=== PATIENT | female | born 1995 | race Caucasian/White ===

== ENCOUNTER 2017-05-10 16:56 | Emergency (ER) | payer SELFPAY ==
[2017-05-10 17:16] VITALS: BP 146/48
--- NOTE | 2017-05-10 17:38 | UC ---
Abdominal Pain Female HPI - HPI Summary HPI Summary: ONSET OF LOWER ABDOMINAL PAIN AND NAUSEA TODAY AT 3:30PM. NO FEVER OR DIARRHEA. LAST BM THIS MORNING WAS NORMAL. DENIES ANY CHANCE OF . NO URINARY SX. PT REPORTS PAIN IMPROVED AFTER ABOUT 45 MINUTES AND IS NOW COMPLETELY RESOLVED AND SHE DECLINES ALL WORK-UP HERE. 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 - BOYFRIEND Hx Last Menstrual Period: 04/24/17 Onset/Duration: Sudden Onset, Lasting Minutes, Resolved Severity Initially: Moderate Severity Currently: None Pain Intensity: 7 Pain Scale Used: 0-10 Numeric Location: Suprapubic Radiates: No Character: Sharp Aggravating Factor(s): Nothing Alleviating Factor(s): Spontaneous Resolution Associated Signs and Symptoms: Negative: Fever, Back Pain, Constipation, Blood in Stool, Urinary Symptoms, Decreased Appetite, Vaginal Bleeding, Vaginal Discharge, Nausea, Vomiting, Diarrhea Allergies/Adverse Reactions: Allergies Allergy/AdvReac Type Severity Reaction Status Date / Time No Known Allergies Allergy Verified 05/10/17 17:16 PMH/Surg Hx/FS Hx/Imm Hx Previously Healthy: Yes - Surgical History Surgical History: Yes Surgery Procedure, Year, and Place: tonsills and adnoids - Family History Known Family History: Positive: Hypertension - Social History Alcohol Use: None Substance Use Type: None Smoking Status (MU): Never Smoked Tobacco Review of Systems Constitutional: Negative Respiratory: Negative Cardiovascular: Negative Gastrointestinal: Abdominal Pain All Other Systems Reviewed And Are Negative: Yes Physical Exam Triage Information Reviewed: Yes Appearance: Well-Appearing, No Pain Distress, Well-Nourished Vital Signs: Initial Vital Signs Temp 98.1 F 05/10/17 17:11 Pulse 67 05/10/17 17:11 Resp 15 05/10/17 17:11 BP 146/48 05/10/17 17:11 Pulse Ox 100 05/10/17 17:11 Vital Signs Reviewed: Yes Eyes: Positive: Conjunctiva Clear ENT: Positive: Hearing grossly normal Neck: Positive: Supple, Nontender, No Lymphadenopathy Respiratory Exam: Normal Cardiovascular Exam: Normal Abdomen Description: Positive: Soft, Other: - MILDLY TENDER SUPRAPUBIC AND RLQ REGIONS. NO REBOUND OR RIGIDITY. Negative: CVA Tenderness (R), CVA Tenderness ( L), Distended, Guarding Bowel Sounds: Positive: Present Musculoskeletal: Positive: No Edema Neurological: Positive: Alert Psychological: Positive: Normal Response To Family, Age Appropriate Behavior Skin: Negative: rashes Abd Pain Female Course/Dx - Course Course Of Treatment: SYMPTOMS RESOLVED BY THE TIME PT ARIVED HERE TO . SHE DECLINES WORK-UP (INCLUDING TESTING FOR UTI AND ) AND WOULD LIKE TO GO HOME. ADVISED CAREFUL OBSERVATION OVER THE NEXT FEW DAYS AND TO SEEK FOLLOW-UP IF SYMPTOMS RECUR. - Differential Dx/Diagnosis Provider Diagnoses: ABDOMINAL PAIN - RESOLVED Discharge - Discharge Plan Condition: Stable Disposition: HOME Patient Education Materials: Abdominal Pain (ED) Referrals: Trish Arellano RN [Primary Care Provider] - If Needed Additional Instructions: ABDOMINAL PAIN: There are many causes of abdominal pain. Pain can mean a serious problem requiring surgery (such as appendicitis), or an innocent problem which goes away on its own (such as a viral infection). Often, time must pass to determine the cause of pain. The physician does not feel that hospitalization is necessary, at present. Conditions may change, however, within the next 24 hours. Therefore, call the doctor or come back for re-examination if any problems occur, such as: 1) Pain which becomes more severe, steady, or becomes concentrated in one specific area. Also, pain which is more severe with movement or coughing. 2) Vomiting which persists or becomes more frequent. 3) Blood in the vomitus, urine, or bowel movements. Blood in the stool may have a tarry or black appearance. 4) Shaking chills or fever greater than 100 degrees F. 5) The abdomen becomes more distended or swollen. 6) Bowel movements cease. 7) Failure to improve as expected. OBSERVATION FOR APPENDICITIS: At this time, the abdominal pain does not seem to be appendicitis. Our next "test" will be passage of time. If you have early appendicitis, signs will appear to help us make the diagnosis. Most of the time, the pain goes away. In these cases, the pain is usually due to a virus in the lymph glands near the appendix, or due to an ovarian cyst or ovulation. Unless the pain is gone, you should come back for a recheck. This is usually done in 8 to 12 hours. Be sure you understand your follow-up instructions. GO TO THE ER IMMEDIATELY IF: (1) the pain becomes much more severe and sharply increases with movement or coughing, (2) vomiting becomes frequent, (3) there is blood in the vomit, urine, or bowel movements, (4) there are shaking chills or fever, or (5) the abdomen becomes more distended or swollen.
== END 2017-05-10 17:40 | disposition home or self-care (01) ==
LOC: UCEAST 16:56
DX: R10.30 Lower abdominal pain, unspecified (principal); R10.31 Right lower quadrant pain
CPT/HCPCS: 99211; G0463